=== PATIENT | female | born 1940 | race Caucasian/White ===

== ENCOUNTER → 2017-05-13 | Outpatient (CLI) | payer OTHER ==
[2017-05-15 12:55] LABS: HPV Genotype 16 Not Detected (NOTDET); HPV Genotype 18 Not Detected (NOTDET)
[2017-05-19 11:09] LABS: HPV High Risk Other Not Detected (NOTDET)
== END ==
LOC: OLS 15:33
PROVIDERS: Obstetrics & Gynecology Gynecology
DX: Z12.4 Encounter for screening for malignant neoplasm of cervix (principal)
CPT/HCPCS: 87624; G0123

== ENCOUNTER 2018-02-02 00:11 | Day surgery (SDC) | payer OTHER | END 2018-02-02 23:03 | disposition home or self-care (01) | LOC: WOUND 00:11 | DX: L97.822 Non-pressure chronic ulcer of other part of left lower leg with fat layer exposed (principal); I73.9 Peripheral vascular disease, unspecified | CPT/HCPCS: G0463 ==

== ENCOUNTER → 2018-10-21 | Outpatient (CLI) | payer OTHER | END | disposition home or self-care (01) | LOC: LAB SHORT 07:32 → LAB 07:32 | DX: N95.0 Postmenopausal bleeding (principal) | CPT/HCPCS: 88305 ==

== ENCOUNTER 2019-12-26 09:13 | Day surgery (SDC) | payer OTHER | END 2019-12-26 23:21 | disposition home or self-care (01) | LOC: WOUND 09:13 | DX: L97.822 Non-pressure chronic ulcer of other part of left lower leg with fat layer exposed (principal); I73.9 Peripheral vascular disease, unspecified; I87.2 Venous insufficiency (chronic) (peripheral); I10 Essential (primary) hypertension; Z88.0 Allergy status to penicillin; Z88.2 Allergy status to sulfonamides; Z79.899 Other long term (current) drug therapy | CPT/HCPCS: G0463 ==

== ENCOUNTER 2019-12-28 12:38 | Day surgery (SDC) | payer OTHER ==
[2019-12-29] MEDS ORDERED: MECL12.5 PO (23:34)
== END 2019-12-28 22:55 | disposition home or self-care (01) ==
LOC: WOUND 12:38
DX: L97.822 Non-pressure chronic ulcer of other part of left lower leg with fat layer exposed (principal); I73.9 Peripheral vascular disease, unspecified; I87.2 Venous insufficiency (chronic) (peripheral); Z79.899 Other long term (current) drug therapy

== ENCOUNTER 2019-12-29 20:05 | Emergency (ER) | payer OTHER ==
[~2019-12-29] VITALS: Ht 167.6 cm; Wt 64.9 kg
[2019-12-29 20:49] LABS: BASOPHILS ABSOLUTE AUTO 0.05 K/mm3 (0.00-0.23); BASOPHILS PERCENT AUTO 1 % (0-2); EOSINOPHILS ABSOLUTE AUTO 0.09 K/mm3 (0.00-0.68); EOSINOPHILS PERCENT AUTO 1 % (0-6); Hematocrit 42.4 % (33.0-51.0); Hemoglobin 14.4 g/dL (11.5-16.0); IMMATURE GRAN ABSOLUTE AUTO 0.01 K/mm3 (0.00-0.10); IMMATURE GRAN PERCENT AUTO 0 % (0-1); LYMPHOCYTES ABSOLUTE AUTO 1.74 K/mm3 (0.84-5.20); LYMPHOCYTES PERCENT AUTO 28 % (21-46); MONOCYTES ABSOLUTE AUTO 0.45 K/mm3 (0.16-1.47); MONOCYTES PERCENT AUTO 7 % (4-13); Mean Corpuscular HGB 32.1 pg (26.0-34.0); Mean Corpuscular Volume 94 fL (80-100); Mean Platelet Volume 9.5 fL (9.1-12.4); NEUTROPHILS ABSOLUTE AUTO 3.92 K/mm3 (1.96-9.15); NEUTROPHILS PERCENT AUTO 63 % (41-73); Platelet Count 232 K/mm3 (150-400); RDW Coefficient Variation 12.4 % (11.7-14.2); RDW Standard Deviation 43.3 fL (35.1-46.3); Red Blood Cell Count 4.49 M/mm3 (3.80-5.20); White Blood Cell Count 6.26 K/mm3 (4.00-11.30)
[2019-12-29 21:06] LABS: Alanine Aminotransfer (ALT/SGP 15 U/L (12-78); Albumin, Blood 3.5 g/dL (3.4-5.0); Albumin/Globulin Ratio 1.2 (0.8-1.8); Alk Phos 57 U/L (50-136); Anion Gap 5 mmol/L (6-16); Aspartate Aminotrans (AST/SGOT 10 U/L (12-37); Bilirubin, Total 0.8 mg/dL (0.1-1.0); Blood Urea Nitrogen 10 mg/dL (8-24); Bun/Creatinine Ratio 18.2 (12.0-20.0); CO2, Blood 25 mmol/L (21-32); Calcium, Blood 8.7 mg/dL (8.5-10.1); Chloride, Blood 106 mmol/L (98-108); Creatinine, Blood 0.55 mg/dL (0.40-1.00); Glomerular Filtration Rate >60 (60-); Glucose, Blood 96 mg/dL (70-99); Potassium, Blood 3.8 mmol/L (3.5-5.5); Sodium, Blood 136 mmol/L (136-145); Total Protein, Blood 6.5 g/dL (6.4-8.2)
[2019-12-29 22:52] LABS: Source, Urine Clean Catch
[2019-12-29 22:57] LABS: Bilirubin, Urine Neg (Neg); Blood, Urine 3+ (Neg); Glucose Qualitative, Urine Neg (Neg); Ketones, Urine 3+ (Neg); Leukocyte Esterase, Urine Neg (Neg); Nitrite, Urine Neg (Neg); Protein, Urine Neg (Neg); Urobilinogen, Urine NORM (Normal); pH, Urine 6.5 (5.0-8.0)
[2019-12-29 23:04] LABS: Appearance, Urine Clear (Clear); Color, Urine Yellow (P-Yellow); Squamous Epithelial Cells Few /hpf (Few)
[2019-12-29 23:05] LABS: Bacteria Mod /hpf; White Blood Cells, Urine 0-2 /hpf (0-5)
[2019-12-29] MEDS ORDERED: MECL12.5 PO (23:34)
== END 2019-12-29 23:37 | disposition home or self-care (01) ==
LOC: ER 20:05
PROVIDERS: Emergency Medicine
DX: R42 Dizziness and giddiness (principal); R03.0 Elevated blood-pressure reading, without diagnosis of hypertension; R11.0 Nausea; S91.002A Unspecified open wound, left ankle, initial encounter; Z88.0 Allergy status to penicillin; Z88.2 Allergy status to sulfonamides; X58.XXXA Exposure to other specified factors, initial encounter
CPT/HCPCS: 36415; 80053; 81001; 85025; 87086; 93005; 93010; 99284-25

== ENCOUNTER 2020-01-02 00:23 | Day surgery (SDC) | payer OTHER ==
[~2020-01-02 00:23] MED LIST: MECL12.5 PO
== END 2020-01-02 22:55 | disposition home or self-care (01) ==
LOC: WOUND 00:23
DX: L97.822 Non-pressure chronic ulcer of other part of left lower leg with fat layer exposed (principal); I73.9 Peripheral vascular disease, unspecified; I87.2 Venous insufficiency (chronic) (peripheral)

== ENCOUNTER → 2020-01-10 | Outpatient (CLI) | payer OTHER ==
[2020-01-10 13:53] LABS: Stool Occult Bld Immuno 1 Negative (NEGATIVE); Stool Occult Bld Immuno 2 Negative (NEGATIVE)
== END | disposition home or self-care (01) ==
LOC: LAB SHORT 06:00 → LAB 06:00
PROVIDERS: Internal Medicine Gastroenterology
DX: K57.90 Diverticulosis of intestine, part unspecified, without perforation or abscess without bleeding (principal); R10.84 Generalized abdominal pain; R19.4 Change in bowel habit
CPT/HCPCS: 82274

== ENCOUNTER 2020-01-13 01:56 | Day surgery (SDC) | payer OTHER | END 2020-01-13 22:40 | disposition home or self-care (01) | LOC: WOUND 01:56 | DX: L97.822 Non-pressure chronic ulcer of other part of left lower leg with fat layer exposed (principal); I87.2 Venous insufficiency (chronic) (peripheral); I73.9 Peripheral vascular disease, unspecified ==

== ENCOUNTER 2020-01-27 02:15 | Day surgery (SDC) | payer OTHER | END 2020-01-27 23:07 | disposition home or self-care (01) | LOC: WOUND 02:15 | DX: L97.822 Non-pressure chronic ulcer of other part of left lower leg with fat layer exposed (principal); I73.9 Peripheral vascular disease, unspecified; I87.2 Venous insufficiency (chronic) (peripheral) | CPT/HCPCS: G0463 ==

== ENCOUNTER 2020-02-10 00:50 | Day surgery (SDC) | payer OTHER | END 2020-02-10 23:15 | disposition home or self-care (01) | LOC: WOUND 00:50 | DX: L97.822 Non-pressure chronic ulcer of other part of left lower leg with fat layer exposed (principal); I73.9 Peripheral vascular disease, unspecified; I87.2 Venous insufficiency (chronic) (peripheral) ==

== ENCOUNTER 2020-02-17 00:21 | Day surgery (SDC) | payer OTHER | END 2020-02-17 22:56 | disposition home or self-care (01) | LOC: WOUND 00:21 | DX: I96 Gangrene, not elsewhere classified (principal); L97.822 Non-pressure chronic ulcer of other part of left lower leg with fat layer exposed; I87.2 Venous insufficiency (chronic) (peripheral); I10 Essential (primary) hypertension; M19.90 Unspecified osteoarthritis, unspecified site; H26.9 Unspecified cataract; H74.90 Unspecified disorder of middle ear and mastoid, unspecified ear; Z88.0 Allergy status to penicillin; Z88.2 Allergy status to sulfonamides | CPT/HCPCS: G0463 ==

== ENCOUNTER 2020-02-24 00:46 | Day surgery (SDC) | payer OTHER | END 2020-02-25 23:38 | disposition home or self-care (01) | LOC: WOUND 00:46 | DX: I96 Gangrene, not elsewhere classified (principal); L97.821 Non-pressure chronic ulcer of other part of left lower leg limited to breakdown of skin; I10 Essential (primary) hypertension; H26.9 Unspecified cataract; H74.90 Unspecified disorder of middle ear and mastoid, unspecified ear; M19.90 Unspecified osteoarthritis, unspecified site; I87.2 Venous insufficiency (chronic) (peripheral); Z88.0 Allergy status to penicillin; Z88.2 Allergy status to sulfonamides; Z79.899 Other long term (current) drug therapy | CPT/HCPCS: G0463 ==

== ENCOUNTER 2020-03-15 00:17 | Day surgery (SDC) | payer OTHER | END 2020-03-15 23:17 | disposition home or self-care (01) | LOC: WOUND 00:17 | DX: L97.822 Non-pressure chronic ulcer of other part of left lower leg with fat layer exposed (principal); I73.9 Peripheral vascular disease, unspecified; I87.2 Venous insufficiency (chronic) (peripheral) ==

== ENCOUNTER 2020-04-03 00:27 | Day surgery (SDC) | payer OTHER | END 2020-04-03 22:59 | disposition home or self-care (01) | LOC: WOUND 00:27 | DX: I96 Gangrene, not elsewhere classified (principal); L97.822 Non-pressure chronic ulcer of other part of left lower leg with fat layer exposed; I87.2 Venous insufficiency (chronic) (peripheral); I10 Essential (primary) hypertension; M19.90 Unspecified osteoarthritis, unspecified site; H74.90 Unspecified disorder of middle ear and mastoid, unspecified ear; Z88.0 Allergy status to penicillin; Z88.2 Allergy status to sulfonamides | CPT/HCPCS: G0463 ==

== ENCOUNTER 2020-04-24 00:22 | Day surgery (SDC) | payer OTHER | END 2020-04-24 23:17 | disposition home or self-care (01) | LOC: WOUND 00:22 | DX: L97.822 Non-pressure chronic ulcer of other part of left lower leg with fat layer exposed (principal); I73.9 Peripheral vascular disease, unspecified; I87.2 Venous insufficiency (chronic) (peripheral); Z79.899 Other long term (current) drug therapy; Z88.0 Allergy status to penicillin; Z88.2 Allergy status to sulfonamides | CPT/HCPCS: G0463 ==

== ENCOUNTER 2020-05-11 08:37 | Day surgery (SDC) | payer OTHER | END 2020-05-11 09:00 | disposition home or self-care (01) | LOC: WOUND 08:37 | DX: L97.822 Non-pressure chronic ulcer of other part of left lower leg with fat layer exposed (principal); I73.9 Peripheral vascular disease, unspecified; I87.2 Venous insufficiency (chronic) (peripheral) | CPT/HCPCS: A9270; G0463 ==

== ENCOUNTER 2020-06-08 00:55 | Day surgery (SDC) | payer OTHER | END 2020-06-08 22:48 | disposition home or self-care (01) | LOC: WOUND 00:55 | DX: L97.822 Non-pressure chronic ulcer of other part of left lower leg with fat layer exposed (principal); I73.9 Peripheral vascular disease, unspecified; I87.2 Venous insufficiency (chronic) (peripheral) | CPT/HCPCS: A9270; G0463 ==

== ENCOUNTER 2020-07-12 00:32 | Day surgery (SDC) | payer OTHER | END 2020-07-12 23:02 | disposition home or self-care (01) | LOC: WOUND 00:32 | DX: L97.822 Non-pressure chronic ulcer of other part of left lower leg with fat layer exposed (principal); I87.2 Venous insufficiency (chronic) (peripheral); I10 Essential (primary) hypertension; M19.90 Unspecified osteoarthritis, unspecified site; Z88.0 Allergy status to penicillin; Z88.2 Allergy status to sulfonamides | CPT/HCPCS: A9270; G0463 ==

== ENCOUNTER 2020-07-26 00:31 | Day surgery (SDC) | payer OTHER | END 2020-07-26 23:26 | disposition home or self-care (01) | LOC: WOUND 00:31 | DX: L97.822 Non-pressure chronic ulcer of other part of left lower leg with fat layer exposed (principal); I87.2 Venous insufficiency (chronic) (peripheral) | CPT/HCPCS: 87070; 87075; 87205; A9270; G0463 ==

== ENCOUNTER 2020-08-21 03:32 | Day surgery (SDC) | payer OTHER | END 2020-08-21 23:09 | disposition home or self-care (01) | LOC: WOUND 03:32 | DX: L97.822 Non-pressure chronic ulcer of other part of left lower leg with fat layer exposed (principal); I87.2 Venous insufficiency (chronic) (peripheral) | CPT/HCPCS: A9270; G0463 ==

== ENCOUNTER 2020-09-06 05:33 | Day surgery (SDC) | payer OTHER | END 2020-09-06 22:49 | disposition home or self-care (01) | LOC: WOUND 05:33 | DX: L97.822 Non-pressure chronic ulcer of other part of left lower leg with fat layer exposed (principal); I87.2 Venous insufficiency (chronic) (peripheral); Z88.2 Allergy status to sulfonamides; Z88.0 Allergy status to penicillin | CPT/HCPCS: A9270; G0463 ==

== ENCOUNTER 2020-09-20 04:10 | Day surgery (SDC) | payer OTHER | END 2020-09-20 23:22 | disposition home or self-care (01) | LOC: WOUND 04:10 | DX: L97.822 Non-pressure chronic ulcer of other part of left lower leg with fat layer exposed (principal); I87.2 Venous insufficiency (chronic) (peripheral) | CPT/HCPCS: A9270; G0463 ==

== ENCOUNTER 2020-10-04 02:28 | Day surgery (SDC) | payer OTHER | END 2020-10-04 23:19 | disposition home or self-care (01) | LOC: WOUND 02:28 | DX: L97.822 Non-pressure chronic ulcer of other part of left lower leg with fat layer exposed (principal); I87.2 Venous insufficiency (chronic) (peripheral); Z88.0 Allergy status to penicillin; Z88.2 Allergy status to sulfonamides | CPT/HCPCS: A9270; G0463 ==

== ENCOUNTER 2020-10-25 00:22 | Day surgery (SDC) | payer OTHER | END 2020-10-25 22:48 | disposition home or self-care (01) | LOC: WOUND 00:22 | DX: L97.822 Non-pressure chronic ulcer of other part of left lower leg with fat layer exposed (principal); I87.2 Venous insufficiency (chronic) (peripheral); Z88.0 Allergy status to penicillin; Z88.2 Allergy status to sulfonamides | CPT/HCPCS: A9270; G0463 ==

== ENCOUNTER 2021-02-14 11:31 | Emergency (ER) | payer OTHER ==
[~2021-02-14] VITALS: Ht 167.6 cm; Wt 65.8 kg
[2021-02-14] MEDS ORDERED: LOSA50 PO (11:49)
[2021-02-14] MEDS ORDERED: Aspir 8181 MG PO (11:50)
== END 2021-02-14 12:50 | disposition home or self-care (01) ==
LOC: ER 11:31
DX: S09.90XA Unspecified injury of head, initial encounter (principal); S20.212A Contusion of left front wall of thorax, initial encounter; Z88.0 Allergy status to penicillin; Z88.2 Allergy status to sulfonamides; Z79.899 Other long term (current) drug therapy; Z79.82 Long term (current) use of aspirin; W18.30XA Fall on same level, unspecified, initial encounter
CPT/HCPCS: 70450; 71046; 99284-25

== ENCOUNTER → 2021-07-15 | Outpatient (CLI) | payer OTHER ==
[~2021-07-15] MED LIST changes: +Aspir 8181 MG PO; +LOSA50 PO
== END | disposition home or self-care (01) ==
LOC: LAB 11:45 → LAB SHORT 11:45
DX: R30.9 Painful micturition, unspecified (principal)
CPT/HCPCS: 87077; 87086; 87186

== ENCOUNTER 2022-02-10 02:08 | Day surgery (SDC) | payer OTHER | END 2022-02-10 23:40 | disposition home or self-care (01) | LOC: WOUND 02:08 | DX: I87.2 Venous insufficiency (chronic) (peripheral) (principal); L97.821 Non-pressure chronic ulcer of other part of left lower leg limited to breakdown of skin; Z88.0 Allergy status to penicillin; Z88.2 Allergy status to sulfonamides | CPT/HCPCS: A9270; G0463 ==

== ENCOUNTER 2022-02-14 00:43 | Day surgery (SDC) | payer OTHER | END 2022-02-14 23:26 | disposition home or self-care (01) | LOC: WOUND 00:43 | DX: I87.2 Venous insufficiency (chronic) (peripheral) (principal); L97.821 Non-pressure chronic ulcer of other part of left lower leg limited to breakdown of skin | CPT/HCPCS: G0463 ==

== ENCOUNTER 2022-02-17 01:39 | Day surgery (SDC) | payer OTHER | END 2022-02-17 23:40 | disposition home or self-care (01) | LOC: WOUND 01:39 | DX: I87.2 Venous insufficiency (chronic) (peripheral) (principal); L97.821 Non-pressure chronic ulcer of other part of left lower leg limited to breakdown of skin | CPT/HCPCS: A9270 ==

== ENCOUNTER 2022-02-24 01:48 | Day surgery (SDC) | payer OTHER | END 2022-02-24 23:32 | disposition home or self-care (01) | LOC: WOUND 01:48 | DX: L97.822 Non-pressure chronic ulcer of other part of left lower leg with fat layer exposed (principal); I87.2 Venous insufficiency (chronic) (peripheral) | CPT/HCPCS: A9270 ==

== ENCOUNTER 2022-03-03 01:18 | Day surgery (SDC) | payer OTHER | END 2022-03-03 23:38 | disposition home or self-care (01) | DX: L97.822 Non-pressure chronic ulcer of other part of left lower leg with fat layer exposed (principal); I87.2 Venous insufficiency (chronic) (peripheral) ==

== ENCOUNTER 2022-03-10 01:09 | Day surgery (SDC) | payer OTHER | END 2022-03-10 23:31 | disposition home or self-care (01) | LOC: WOUND 01:09 | DX: L97.822 Non-pressure chronic ulcer of other part of left lower leg with fat layer exposed (principal); I87.2 Venous insufficiency (chronic) (peripheral) | CPT/HCPCS: A9270; G0463 ==

== ENCOUNTER 2022-03-17 01:25 | Day surgery (SDC) | payer OTHER | END 2022-03-17 23:09 | disposition home or self-care (01) | LOC: WOUND 01:25 | DX: L97.822 Non-pressure chronic ulcer of other part of left lower leg with fat layer exposed (principal); I87.2 Venous insufficiency (chronic) (peripheral) | CPT/HCPCS: A9270; Q4133 ==

== ENCOUNTER 2022-03-24 01:26 | Day surgery (SDC) | payer OTHER | END 2022-03-24 23:01 | disposition home or self-care (01) | LOC: WOUND 01:26 | DX: L97.822 Non-pressure chronic ulcer of other part of left lower leg with fat layer exposed (principal); I87.2 Venous insufficiency (chronic) (peripheral) | CPT/HCPCS: A9270; Q4132 ==

== ENCOUNTER 2022-03-31 08:52 | Day surgery (SDC) | payer OTHER | END 2022-03-31 23:10 | disposition home or self-care (01) | LOC: WOUND 08:52 | DX: I87.2 Venous insufficiency (chronic) (peripheral) (principal); L97.821 Non-pressure chronic ulcer of other part of left lower leg limited to breakdown of skin | CPT/HCPCS: G0463 ==

== ENCOUNTER 2022-05-12 12:59 | Day surgery (SDC) | payer OTHER ==
[~2022-05-12 12:59] MED LIST changes: +CLOP75 PO
== END 2022-05-12 23:19 | disposition home or self-care (01) ==
LOC: WOUND 12:59
DX: I87.312 Chronic venous hypertension (idiopathic) with ulcer of left lower extremity (principal); I87.2 Venous insufficiency (chronic) (peripheral); L97.822 Non-pressure chronic ulcer of other part of left lower leg with fat layer exposed; I73.9 Peripheral vascular disease, unspecified

== ENCOUNTER 2023-10-01 03:15 | Day surgery (SDC) | payer OTHER ==
[2023-10-01] MEDS ORDERED: Lidocaine HCl 4% Cream 5 GM ONE (08:06)
== END 2023-10-01 22:56 | disposition home or self-care (01) ==
LOC: WOUND 03:15
DX: L97.322 Non-pressure chronic ulcer of left ankle with fat layer exposed (principal); I87.2 Venous insufficiency (chronic) (peripheral); I73.9 Peripheral vascular disease, unspecified
CPT/HCPCS: A6213; A9270

== ENCOUNTER 2023-10-16 11:50 | Day surgery (SDC) | payer OTHER ==
[2023-10-16] MEDS ORDERED: Lidocaine HCl 4% Cream 5 GM ONE (12:17)
== END 2023-10-16 22:43 | disposition home or self-care (01) ==
LOC: WOUND 11:50
DX: L97.322 Non-pressure chronic ulcer of left ankle with fat layer exposed (principal); L97.822 Non-pressure chronic ulcer of other part of left lower leg with fat layer exposed; I87.2 Venous insufficiency (chronic) (peripheral); I73.9 Peripheral vascular disease, unspecified
CPT/HCPCS: A6213; A9270; G0463

== ENCOUNTER 2023-10-19 10:46 | Day surgery (SDC) | payer OTHER ==
[2023-10-19] MEDS ORDERED: Lidocaine HCl 4% Cream 5 GM ONE (11:00)
== END 2023-10-19 23:19 | disposition home or self-care (01) ==
LOC: WOUND 10:46
DX: L97.322 Non-pressure chronic ulcer of left ankle with fat layer exposed (principal); I87.2 Venous insufficiency (chronic) (peripheral); Z88.2 Allergy status to sulfonamides
CPT/HCPCS: A6213; A9270; G0463

== ENCOUNTER 2023-11-03 01:47 | Day surgery (SDC) | payer OTHER ==
[2023-11-03] MEDS ORDERED: Lidocaine HCl 4% Cream 5 GM ONE (07:53)
== END 2023-11-03 23:20 | disposition home or self-care (01) ==
LOC: WOUND 01:47
DX: I87.2 Venous insufficiency (chronic) (peripheral) (principal); L97.322 Non-pressure chronic ulcer of left ankle with fat layer exposed; I73.9 Peripheral vascular disease, unspecified
CPT/HCPCS: A6213; A9270

== ENCOUNTER 2023-12-17 01:05 | Day surgery (SDC) | payer OTHER | END 2023-12-17 23:00 | disposition home or self-care (01) | LOC: WOUND 01:05 | DX: L97.322 Non-pressure chronic ulcer of left ankle with fat layer exposed (principal); I87.2 Venous insufficiency (chronic) (peripheral); I73.9 Peripheral vascular disease, unspecified | CPT/HCPCS: A6213; G0463 ==

== ENCOUNTER 2023-12-29 03:14 | Day surgery (SDC) | payer OTHER ==
[2023-12-29] MEDS ORDERED: Lidocaine HCl 4% Cream 5 GM ONE (10:49)
== END 2023-12-29 23:00 | disposition home or self-care (01) ==
LOC: WOUND 03:14
DX: L97.322 Non-pressure chronic ulcer of left ankle with fat layer exposed (principal); I87.2 Venous insufficiency (chronic) (peripheral); I73.9 Peripheral vascular disease, unspecified
CPT/HCPCS: A6196; A6213; A9270

== ENCOUNTER 2024-02-11 09:12 | Day surgery (SDC) | payer OTHER ==
[~2024-02-11] VITALS: Ht 167.6 cm; Wt 67.1 kg
[~2024-02-11 09:12] MED LIST changes: +Pentoxifylline400 MG PO; +Vitamin D1000 UNI1 PO
[2024-02-11] MEDS ORDERED: MULVITA PO (09:36)
--- NOTE | 2024-02-11 09:37 | NUR ---
[facility]. PT AWAKE AND ALERT. PT HAD "CHRONIC" WOUND TO LEFT ANKLE, DRSG C/D/I. PT NPO. PT STATES SHE ONLY TAKES AN ASPIRIN AND A MVI
[2024-02-11 09:41] VITALS: BP 164/85
[2024-02-11 09:44] LABS: BASOPHILS ABSOLUTE AUTO 0.04 K/mm3 (0.00-0.23); BASOPHILS PERCENT AUTO 1 % (0-2); EOSINOPHILS ABSOLUTE AUTO 0.19 K/mm3 (0.00-0.68); EOSINOPHILS PERCENT AUTO 3 % (0-6); Hematocrit 43.2 % (33.0-51.0); Hemoglobin 14.5 g/dL (11.5-16.0); IMMATURE GRAN ABSOLUTE AUTO 0.02 K/mm3 (0.00-0.10); IMMATURE GRAN PERCENT AUTO 0 % (0-1); LYMPHOCYTES ABSOLUTE AUTO 2.12 K/mm3 (0.84-5.20); LYMPHOCYTES PERCENT AUTO 33 % (21-46); MONOCYTES ABSOLUTE AUTO 0.49 K/mm3 (0.16-1.47); MONOCYTES PERCENT AUTO 8 % (4-13); Mean Corpuscular HGB Conc 33.6 g/dL (31.5-36.5); Mean Corpuscular Volume 92 fL (80-100); Mean Platelet Volume 9.6 fL (9.1-12.4); NEUTROPHILS ABSOLUTE AUTO 3.63 K/mm3 (1.96-9.15); NEUTROPHILS PERCENT AUTO 56 % (41-73); Platelet Count 230 K/mm3 (150-400); RDW Coefficient Variation 13.1 % (11.7-14.2); RDW Standard Deviation 44.6 fL (35.1-46.3); Red Blood Cell Count 4.68 M/mm3 (3.80-5.20); White Blood Cell Count 6.49 K/mm3 (4.00-11.30)
--- NOTE | 2024-02-11 09:48 | NUR ---
PATIENT ARRIVED, PATIENT STATES SHE WAS UNAWARE SHE WAS SCHEDULED TO HAVE A PROCEDURE. PT HAD A DIFFICULT TIME FOLLOWING [facility] STEP INSTRUCTIONS. PT STATES SHE ATE BREAKFAST AND DOESNT WANT TO HAVE A PROCEDURE DONE TODAY. PT DROVE HERSELF HERE. DR SAMUELS NOTIFIED. IV DC'D INTACT.
[2024-02-11 10:07] LABS: International Normalized Ratio 0.94; Prothrombin Time Results 10.1 Sec (9.7-11.5)
--- NOTE | 2024-02-11 10:12 | NUR ---
PT ESCORTED OUT VIA WHEELCHAIR AT 1013
[2024-02-11 10:13] LABS: Bun/Creatinine Ratio 24.2 (12.0-20.0); Calcium, Blood 8.7 mg/dL (8.5-10.1); Creatinine, Blood 0.78 mg/dL (0.40-1.00); Potassium, Blood 3.9 mmol/L (3.5-5.5)
== END 2024-02-11 10:30 | disposition home or self-care (01) ==
LOC: MHTC 09:12
PROVIDERS: Radiology Diagnostic Radiology
DX: I70.222 Atherosclerosis of native arteries of extremities with rest pain, left leg (principal); I83.029 Varicose veins of left lower extremity with ulcer of unspecified site; L97.929 Non-pressure chronic ulcer of unspecified part of left lower leg with unspecified severity; I10 Essential (primary) hypertension; Z88.0 Allergy status to penicillin; Z88.2 Allergy status to sulfonamides; Z87.891 Personal history of nicotine dependence; Z79.899 Other long term (current) drug therapy
CPT/HCPCS: 80048; 85025; 85610

== ENCOUNTER 2024-05-26 08:56 | Day surgery (SDC) | payer OTHER ==
[2024-05-26] VITALS (7 sets, daily range): BP systolic 86–164; BP diastolic 43–136
[~2024-05-26] VITALS: Ht 167.6 cm; Wt 68.0 kg
[~2024-05-26 08:56] MED LIST changes: +LOSA25 PO; +MULVITA PO
[2024-05-26] MEDS ORDERED: NS 250 ML IV ONE (10:28)
[2024-05-26] MEDS ORDERED: Heparin Sodium 1000 Units/ML 10ML MDV ONE (10:29)
[2024-05-26] MEDS ORDERED: NS 1,000 ML IV ONE ×3 (10:29→13:08)
--- NOTE | 2024-05-26 10:30 | NUR ---
PREP COMPLETED, PENDING PROCEDURE. PATIENT RESTING.
[2024-05-26] MEDS ORDERED: Midazolam HCl 1MG / ML 2ML Vial ONE (11:20)
[2024-05-26] MEDS ORDERED: FentaNYL Citrate 50 MCG/ML 2 ML Injection ONE (11:20)
[2024-05-26] MEDS ORDERED: HydrALAZINE HCl 20 MG / ML 1ML Vial ONE (12:09)
--- NOTE | 2024-05-26 13:29 | NUR ---
REPORT RECEIVED FROM [employer] FUN[employer] DIRECTOR, STABLE INITIALLY AND DURING, NOTED BP LOW, RECHECKING AND NOTED REMAINED LOW, NOTIFIED STAFF AND STARTED NS W/O 1L, OTHER STAFF ASSISTED AND NOTED DISTENDED FIRM BLADDER ADDITIONAL SITE APPEARS INTACT, NO APPARENT CONCERN, I/O CATH PLACED AT PRESENT FOR BLADDER DRAINAGE, BP IMPROVING, PAIN IN RIGHT LEG WITH REPERFUSION LIKELY, VSS OTHERWISE, AND PATIENT RESTING OTHERWISE.
--- NOTE | 2024-05-26 13:45 | NUR ---
PATIENT C/O PAIN/DISCOMFORT, BOTH LOWER LEGS, DOPPLER AND GOOD PULSES X 4 PT/DP. NO CONCERNS OTHERWISE NOTED.
--- NOTE | 2024-05-26 13:45 | NUR ---
PT REPORTS NUMBNESS, BURNING AND TINGLING SENSATION IN LINH FEET. PT'S FEET WARM WITH DOPPLER PULSES X 2, R GROIN SITE REMAINS SOFT WITHOUT HEMATOMA. DR SAMUELS NOTIFIED, EVALUATED PT, NO ORDERS RECEIVED.
--- NOTE | 2024-05-26 14:13 | NUR ---
FC DISCONTINUED PER PT REQUEST, REMOVED WITHOUT ISSUE.
--- NOTE | 2024-05-26 14:34 | NUR ---
PATIENT STABILIZED, BP REMAINS IMPROVED, GIVEN TOTAL 500 NS EARLIER, OUTPUT EARLIER FROM CATH, VSS, RAISED HOB AND TOLERATED WELL, BROUGHT WARM BLANKETS, PATIENT AT PRESENT APPEARS COMFORTABLE IN NO APPARENT DISTRESS, SITE REMAINS INTACT, NO HEMATOMA OR CONCERNS NOTED. VASCULARIZATION APPEARS OVERALL EFFECTIVE AND PAIN IS SLOWLY SUBSIDING, PATIENT CONTINES TO QUESTION "COULD YOU JUST TELL ME WHAT IS THE PROCESS" AND SEVERAL CONVERSATIONS ABOUT EFFECTS OF VERSED. PATIENT OTHERWISE RESTING, CALL LIGHT IN REACH.
--- NOTE | 2024-05-26 14:41 | NUR ---
MESSAGE LEFT WITH [facility] FOR PLAVIX ORDER.
--- NOTE | 2024-05-26 15:23 | NUR ---
ATTEMPT TO AMBULATE PATIENT BUT DUE TO PERSISTENT DISCOMFORT, BOTH SAYING "OW" AND C/O BEING COLD, DIZZY, ONLY AMBULATED ABOUT 5 FEET THEN RETURN TO BED, 10 FEET TOTAL AND WITH YNES RN SAME RESULT WITH LESS DISTANCE, RETURN TO BED AND RECONNECT TO TELE. CALLED S/O EMELIA EARLIER, HERE NOW, SITTING AT BEDSIDE, VSS, PENDING D/C.
--- NOTE | 2024-05-26 16:14 | NUR ---
PATIENT AGAIN AMBULATED AFTER EATING AND FELT COMFORTABLE GOING HOME BUT REMAINS UNSTABLE ON HER FEET SLIGHTLY. AMBULATED PATIENT AND PATIENT GOT DRESSED WITH ASSISTANCE FROM S/O EMELIA, IV REMOVED CANNULA INTACT, VSS, PATIENT ATE EARLIER, ASSISTED TO WHEELCHAIR AND LEFT AT 1610 VIA PRIVATE VEHICLE, ADVISED PRIOR ABOUT PLAVIX, GIVEN D/C INSTRUCTIONS ON PLAVIX AND SITE CARE, DISCUSSED BOTH AND GIVEN UPDATED LIST OF MEDS, WELL CALLING THURSDAY IF NO CALL ABOUT F/U APPT. NO CONCERNS AT TIME OF D/C HOME.
--- NOTE | 2024-05-26 16:24 | NUR ---
UPDATED PHARMACIST AT [facility], PRESCRIPTION RECEIVED.
== END 2024-05-26 16:10 | disposition home or self-care (01) ==
LOC: MHTC 08:56
DX: I70.222 Atherosclerosis of native arteries of extremities with rest pain, left leg (principal); I10 Essential (primary) hypertension; F03.90 Unspecified dementia, unspecified severity, without behavioral disturbance, psychotic disturbance, mood disturbance, and anxiety; Z87.891 Personal history of nicotine dependence; Z79.82 Long term (current) use of aspirin; Z79.899 Other long term (current) drug therapy; Z88.0 Allergy status to penicillin; Z88.2 Allergy status to sulfonamides; Z90.49 Acquired absence of other specified parts of digestive tract
CPT/HCPCS: 37225; 75625; 75716; 75774; 76937; 93005; 93010; 99152; 99153; C1714; C1760; C1769; C1887; C1894; C2623; J0360; J1644; J2250; J3010; J7030; J7050; Q9967